=== PATIENT | female | born 1990 | race Caucasian/White ===

== ENCOUNTER 2018-05-01 23:16 | Emergency (ER) | payer MEDICAID ==
[~2018-05-01] VITALS: Ht 167.6 cm; Wt 62.6 kg
[2018-05-02 00:04] VITALS: BP 115/72
[2018-05-02] MEDS ORDERED: IBUPROFEN 400 MG TABLET ONE (00:28)
[2018-05-02] MEDS ORDERED: CYCLOBENZAPRINE 10 MG TABLET ONE (00:28)
[2018-05-02] MEDS ORDERED: CYCLOBENZAPRINE 10 MG TABLET PO ONE (00:30)
[2018-05-02] MEDS ORDERED: IBUPROFEN 400 MG TABLET PO ONE (00:30)
== END 2018-05-02 01:08 | disposition home or self-care (01) ==
LOC: ER 23:27
DX: R25.2 Cramp and spasm (principal); M54.5 Low back pain
CPT/HCPCS: 99283; A4606; Z7610